=== PATIENT | male | born 1985 | race Hispanic/Latino ===

== ENCOUNTER 2020-07-15 09:19 | Emergency (ER) | payer OTHER ==
--- NOTE | 2020-07-15 10:35 | ER ---
Nurse's Notes [facility] Name: Randal Garvin Jr Age: 34 yrs Sex: Male : 1985 Arrival Date: 07/15/2020 Time: 09:22 Bed 13 Private MD: Diagnosis: Unspecified sprain of left foot Presentation: 07/15 09:30 Chief complaint: Patient states: went for a run last night as he normally does but this iw morning he noticed some swelling to his left foot and he couldn't bear weight. Coronavirus screen: At this time, the client does not indicate any symptoms associated with coronavirus-19. Ebola Screen: Patient negative for fever greater than or equal to 101.5 degrees Fahrenheit, and additional compatible Ebola Virus Disease symptoms Patient denies exposure to infectious person. Patient denies travel to an Ebola-affected area in the 21 days before illness onset. No symptoms or risks identified at this time. Onset of symptoms was July 15, 2020. 09:30 Method Of Arrival: Wheelchair iw 09:30 Acuity: ARETHA 4 iw 09:32 Initial Sepsis Screen: Does the patient meet any 2 criteria? No. Patient's initial iw sepsis screen is negative. Does the patient have a suspected source of infection? No. Patient's initial sepsis screen is negative. Risk Assessment: Do you want to hurt yourself or someone else? Patient reports no desire to harm self or others. Triage Assessment: 09:30 General: Appears in no apparent distress. uncomfortable, Behavior is calm, cooperative, bp appropriate for age. Pain: Complains of pain in left foot. EENT: No deficits noted. Neuro: No deficits noted. Cardiovascular: No deficits noted. Respiratory: No deficits noted. GI: No signs and/or symptoms were reported involving the gastrointestinal system. : No signs and/or symptoms were reported regarding the genitourinary system. Derm: No deficits noted. Musculoskeletal: Circulation, motion, and sensation intact. Range of motion: intact in all extremities. Injury Description: Bruise sustained to left foot. Historical: - Allergies: 09:32 No Known Allergies; iw - Home Meds: 09:32 None [Active]; iw - PMHx: :32 None; iw - PSHx: :32 None; iw - Immunization history:: Adult Immunizations not up to date. - Social history:: Smoking status: Patient denies any tobacco usage or history of. Screenin:30 Abuse screen: Denies threats or abuse. Denies injuries from another. Nutritional bp screening: No deficits noted. Tuberculosis screening: No symptoms or risk factors identified. Fall Risk None identified. Assessment: 09:30 General: SEE TRIAGE NOTE. bp 11:06 Reassessment: PT D/C HOME ON CRUTCHES, DX WITH SPRAIN OF LEFT FOOT. bp Vital Signs: 09:35 BP 129 / 84; Pulse 60; Resp 16; Temp 98.0; Pulse Ox 100% on R/A; Weight 70.31 kg; iw Height 5 ft. 8 in. (172.72 cm); Pain 5/10; 11:06 BP 116 / 68; Pulse 62; Resp 16; Pulse Ox 100% ; bp 09:35 Body Mass Index 23.57 (70.31 kg, 172.72 cm) ED Course: 09:22 Patient arrived in ED. ag5 09:24 Flower Crane FNP-C is [facility]. kb 09:24 Jeff Thompson MD is Attending Physician. kb 09:27 Camilo Fonseca, RN is Primary Nurse. bp 09:30 Patient has correct armband on for positive identification. Bed in low position. Call bp light in reach. Side rails up X2. 09:32 Triage completed. iw 09:33 Arm band placed on. iw 10:54 Crutch training done. Tai wrap to left ankle. 5 11:06 No provider procedures requiring assistance completed. Patient did not have IV access bp during this emergency room visit. Administered Medications: No medications were administered Outcome: 10:34 Discharge ordered by . kb 11:06 Discharged to home ambulatory, with crutches. bp 11:06 Condition: stable 11:06 Discharge instructions given to patient, Instructed on discharge instructions, follow up and referral plans. crutch walking, Demonstrated understanding of instructions, follow-up care, crutch walking. 11:08 Patient left the ED. bp Signatures: Flower Crane FNP-C FNP-Ckb Williams, Irene, RN RN iw Vivian Pereira [facility] Camilo Fonseca, FUAD RN Dominic Patricia 5
--- NOTE | 2020-07-15 10:35 | EDPHYS ---
Physician Documentation [facility] Name: Randal Garvin Jr Age: 34 yrs Sex: Male : 1985 Arrival Date: 07/15/2020 Time: 09:22 Bed 13 Private MD: LARS Physician Jeff Thompson HPI: 07/15 09:48 This 34 yrs old Male presents to ER via Wheelchair with complaints of Foot kb Injury. 09:48 The patient presents with pain, that is acute. The complaints affect the left foot. kb Context: The problem was sustained at home, resulted from an unknown cause, Mechanism of Injury: Unknown the patient can fully bear weight, the patient is able to ambulate. Onset: The symptoms/episode began/occurred this morning. Modifying factors: The symptoms are alleviated by nothing, the symptoms are aggravated by weight bearing. Associated signs and symptoms: The patient has no apparent associated signs or symptoms. Severity of symptoms: At their worst the symptoms were mild, moderate, in the emergency department the symptoms are unchanged. The patient has not experienced similar symptoms in the past. The patient has not recently seen a physician. Pt reports he went on a run of 2-3 miles yesterday and today he woke up with pain to lateral left foot. States the run was nothing out of the ordinary, but denies any other activity yesterday that could have caused the pain. Historical: - Allergies: 09:32 No Known Allergies; iw - Home Meds: 09:32 None [Active]; iw - PMHx: 09:32 None; iw - PSHx: 09:32 None; iw - Immunization history:: Adult Immunizations not up to date. - Social history:: Smoking status: Patient denies any tobacco usage or history of. ROS: 09:44 Constitutional: Negative for fever, chills, and weight loss, Cardiovascular: Negative kb for chest pain, palpitations, and edema, Respiratory: Negative for shortness of breath, cough, wheezing, and pleuritic chest pain, Abdomen/GI: Negative for abdominal pain, nausea, vomiting, diarrhea, and constipation, Back: Negative for injury and pain, Skin: Negative for injury, rash, and discoloration, Neuro: Negative for headache, weakness, numbness, tingling, and seizure. 09:44 MS/extremity: Positive for decreased range of motion, pain, of the left foot. Exam: 09:44 Constitutional: This is a well developed, well nourished patient who is awake, alert, kb and in no acute distress. Head/Face: Normocephalic, atraumatic. Chest/axilla: Normal chest wall appearance and motion. Nontender with no deformity. No lesions are appreciated. Cardiovascular: Regular rate and rhythm with a normal S1 and S2. No gallops, murmurs, or rubs. Normal PMI, no JVD. No pulse deficits. Respiratory: Lungs have equal breath sounds bilaterally, clear to auscultation and percussion. No rales, rhonchi or wheezes noted. No increased work of breathing, no retractions or nasal flaring. Abdomen/GI: Soft, non-tender, with normal bowel sounds. No distension or tympany. No guarding or rebound. No evidence of tenderness throughout. Skin: Warm, dry with normal turgor. Normal color with no rashes, no lesions, and no evidence of cellulitis. Neuro: Awake and alert, GCS 15, oriented to person, place, time, and situation. Cranial nerves II-XII grossly intact. Motor strength 5/5 in all extremities. Sensory grossly intact. Cerebellar exam normal. Normal gait. 09:44 Musculoskeletal/extremity: Extremities: grossly normal except: noted in the left foot: decreased ROM, pain, tenderness, ROM: intact in all extremities, Circulation is intact in all extremities. Sensation intact. Weight bearing: able to fully bear weight, increases pain. Vital Signs: 09:35 BP 129 / 84; Pulse 60; Resp 16; Temp 98.0; Pulse Ox 100% on R/A; Weight 70.31 kg; iw Height 5 ft. 8 in. (172.72 cm); Pain 5/10; 11:06 BP 116 / 68; Pulse 62; Resp 16; Pulse Ox 100% ; bp 09:35 Body Mass Index 23.57 (70.31 kg, 172.72 cm) iw MDM: 09:29 Patient medically screened. pricilla 09:43 Data reviewed: vital signs, nurses notes. Data interpreted: Pulse oximetry: on room air kb is 100 %. Interpretation: normal. 10:30 Counseling: I had a detailed discussion with the patient and/or guardian regarding: the kb historical points, exam findings, and any diagnostic results supporting the discharge/admit diagnosis, radiology results, the need for outpatient follow up, a family practitioner, to return to the emergency department if symptoms worsen or persist or if there are any questions or concerns that arise at home. 11:04 Test interpretation: by ED physician or midlevel provider: plain radiologic studies, no kb fracture. 07/15 09:34 Order name: Foot Left 3 View XRAY kb 07/15 11:00 Order name: RAD; Complete Time: 11:01 EDTX 07/15 10:30 Order name: Tai Wrap; Complete Time: 10:55 kb 07/15 10:34 Order name: Crutches; Complete Time: 10:55 kb Administered Medications: No medications were administered Disposition: 07/15/20 10:34 Discharged to Home. Impression: Unspecified sprain of left foot. - Condition is Stable. - Discharge Instructions: Foot Sprain. - Work release form, Medication Reconciliation Form, Thank You Letter, Antibiotic Education, Prescription Opioid Use form. - Follow up: Emergency Department; When: As needed; Reason: Worsening of condition. Follow up: Private Physician; When: 2 - 3 days; Reason: Recheck today's complaints, Continuance of care, Re-evaluation by your physician. Addendum: 07/16/2020 11:46 Co-signature as Attending Physician, Jeff Thompson MD I agree with the assessment and c paez plan of care. Signatures: Dispatcher [employer] EDFlower Hedrick, AIRCRAFT ENGINEER-C AIRCRAFT ENGINEER-Ckb Jeff Thompson MD MD cha Williams, Irene, Camilo Ng RN, RN RN bp Corrections: (The following items were deleted from the chart) 07/15 11:08 10:34 07/15/2020 10:34 Discharged to Home. Impression: Unspecified sprain of left foot. bp Condition is Stable. Forms are Medication Reconciliation Form, Thank You Letter, Antibiotic Education, Prescription Opioid Use. Follow up: Emergency Department; When: As needed; Reason: Worsening of condition. Follow up: Private Physician; When: 2 - 3 days; Reason: Recheck today's complaints, Continuance of care, Re-evaluation by your physician. kb
--- NOTE | 2020-07-15 10:59 | RAD REPORT ---
EXAM DESCRIPTION: RAD - Foot Left 3 View - 07/15/2020 10:42 am CLINICAL HISTORY: PAIN, trauma COMPARISON: No comparisons FINDINGS: No fracture, dislocation or periosteal reaction. No acute or destructive bony process. No air or foreign body in the soft tissues. IMPRESSION: Negative left foot examination.
[2020-07-15 11:18] VITALS: TEMP 98; O2SAT 100
[2020-07-15 11:20] VITALS: BP 116/68
== END 2020-07-15 11:08 | disposition home or self-care (01) ==
LOC: ER 09:19
DX: S93.602A Unspecified sprain of left foot, initial encounter (principal); Y93.02 Activity, running; Y92.009 Unspecified place in unspecified non-institutional (private) residence as the place of occurrence of the external cause
CPT/HCPCS: 99283

== ENCOUNTER 2020-09-15 12:56 | Emergency (ER) | payer OTHER ==
--- OUTSIDE RECORDS SUMMARY | 2020-09-15 13:02 | XMS REPORT | Continuity of Care Document ---
:1985 Author Organization [facility] t Address [address] [place] [address] Care Team Providers Name Role Phone MARKO Attending Clinician Unavailable Lab, [facility] Attending Clinician Unavailable Problems Condition Condition Condition Status Onset Resolution Last Treating Co mments Source Name Details Category Date Date Treatment Clinician Date Acute Acute Problem Active [facility] bilateral bilateral [place] of knee pain knee pain [place] [facility] Complex Complex Problem Active [facility] tear of tear of ity of medial medial [place] meniscus meniscus Physic i of right of right ans knee as knee as current current injury, injury, initial initial encounter encounter Allergies, Adverse Reactions, Alerts This patient has no known allergies or adverse reactions. Medications This patient has no known medications. Procedures Procedure Date / Time Performed Performing Clinician Sour e [U] XRAY KNEE 4 OR 2020-04-07 00:00:00 [facility] MORE VWS BILATERAL Physicians [id number] MR Knee wo contrast 2020-04-07 00:00:00 [facility] [id number] Physicians Encounters Start End Encounter Admission Attending Care Care Encounter Source Date/Time Date/Time Type Type Clinicians Facility Department ID 2020-04-07 2020-04-07 Appointmen [facility] [id number] [facility] 14:30:00 14:30:00 t; [facility], at [facility] Uri Suarez M.D. Orthopedic Physi ci and Spine [facility], POD 2 2020-02-24 2020-02-24 Internet Marketing Consultant Lab, [facility] [id number] 16:23:51 16:43:51 Visit [facility] [id number] [place] [id number] Professio [phone] [address]al [address] One Results This patient has no known results.
[2020-09-15 13:35] LABS: Absolute Lymphocytes (CBC) 1.4 K/uL (0.7-4.9); Basophils % 0.7 % (0-1.3); Hematocrit 42.6 % (39.6-49.0); Lymphocytes % 36.5 % (15.3-44.8); MPV 8.9 fL (7.6-11.3); RBC Red Blood Cell Count 4.74 M/uL (4.33-5.43)
[2020-09-15 13:44] LABS: Potassium 3.6 mmol/L (3.5-5.1)
[2020-09-15] MEDS ORDERED: ACETAMINOPHEN 500 MG TAB ONE (14:09)
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
[2020-09-15 15:10] VITALS: BP 118/63; TEMP 98; O2SAT 100
== END 2020-09-15 15:04 | disposition home or self-care (01) ==
LOC: ER 12:56
DX: S16.1XXA Strain of muscle, fascia and tendon at neck level, initial encounter (principal); S20.212A Contusion of left front wall of thorax, initial encounter; V49.40XA Driver injured in collision with unspecified motor vehicles in traffic accident, initial encounter
CPT/HCPCS: 85025; 80048; 36415; 70450; 72125; 71260; 74177; 99284; Q9967